=== PATIENT | male | born 1960 | race Caucasian/White ===

== ENCOUNTER 2017-03-05 22:25 | Emergency (ER) | payer OTHER ==
[~2017-03-05] VITALS: Ht 170.2 cm; Wt 70.0 kg
[~2017-03-05 22:25] MED LIST: BACI500O9 TOPICAL; CLIN1CAP6 PO; CLON1 PO; GABA300C5 PO; GABA800T PO; IBUP-232 PO; L. A1CAP PO; LISI-515 PO; MORP1TAB25 PO; NORC5TAB PO; OXYC-392 PO; PANT20 PO; QUET1TAB7 PO
[2017-03-05 22:28] VITALS: BP 159/96; PULSE 85; RESP 16; TEMP 98.6; O2SAT 98
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
--- NOTE | 2017-03-06 01:16 | RADRPT ---
EXAM DATE/TIME: 03/06/2017 00:39 [facility] COMPARISON: FOOT LEFT COMPLETE ([id number]), January 28, 2017, 19:47. INDICATIONS : Evaluate for osteomyelitis. MEDICAL HISTORY : Left heel ulcer. SURGICAL HISTORY : Left foot surgery. ENCOUNTER: Initial ACUITY: >1 year PAIN SCORE: 4/10 LOCATION: Left heel. FINDINGS: Two view examination of the left heel demonstrates postoperative changes with screws in the midfoot a s previously noted January 28. Again seen is a fracture of the screw traversing the talus and distal tib ia. Intramedullary terry is again seen traversing the fibula. There is advanced arthropathy in the midf oot and hindfoot with bony deformities from previous fractures that appear stable since January. There i s a small lucency in the soft tissues of the heel characteristic of a small ulceration with soft tiss ue swelling. CONCLUSION: 1. Chronic posttraumatic and postoperative changes of the left foot. Small ulceration noted in the so ft tissues of the left heel. Cornelio Horton MD on March 06, 2017 at 1:11 Board Certified Radiologist. This report was verified electronically.
[2017-03-06 01:33] LABS: AUTOMATED NEUTROPHIL # 2.5 TH/MM3 (1.8-7.7); BASOPHIL % 0.8 % (0.0-2.0); EOSINOPHIL # 0.1 TH/MM3 (0-0.4); EOSINOPHIL % 1.4 % (0.0-4.0); HEMATOCRIT 36.1 % (39.0-51.0); HEMO FLAGS DIFF FINAL; LYMPH % 44.7 % (9.0-44.0); LYMPHOCYTE # 2.6 TH/MM3 (1.0-4.8); MEAN CELL VOLUME 92.3 FL (80.0-100.0); MEAN CORPUSCULAR HEMOGLOBIN 30.3 PG (27.0-34.0); MEAN CORPUSCULAR HGB CONC 32.8 % (32.0-36.0); MONO % 10.3 % (0.0-8.0); NEUT % 42.8 % (16.0-70.0); PLATELET COUNT 262 TH/MM3 (150-450); RED BLOOD COUNT 3.91 MIL/MM3 (4.50-5.90); RED CELL DISTRIBUTION WIDTH 13.3 % (11.6-17.2); WHITE BLOOD COUNT 5.7 TH/MM3 (4.0-11.0)
[2017-03-06] MEDS ORDERED: BACT800T5 PO (02:00)
[2017-03-06] MEDS ORDERED: SULFAMETHOXAZOLE-TRIMETHOPRIM DS 800-160 MG TAB PO ONE (02:00)
[2017-03-06] MEDS ORDERED: CEPH-460 PO (02:00)
[2017-03-06] MEDS ORDERED: CEPHALEXIN MONOHYDRATE 500 MG CAP PO ONE (02:00)
[2017-03-06] MEDS ORDERED: IBUP-232 PO (02:00)
[2017-03-06] MEDS ORDERED: GABA300C5 PO (03:03)
[2017-03-06] MEDS ORDERED: DOXY100C PO (03:03)
== END 2017-03-06 02:23 | disposition home or self-care (01) ==
LOC: NEPC 22:25
DX: L97.521 Non-pressure chronic ulcer of other part of left foot limited to breakdown of skin (principal); I10 Essential (primary) hypertension
CPT/HCPCS: 73650; 85025; 99284

== ENCOUNTER 2017-03-06 02:25 | Emergency (ER) | payer OTHER ==
[~2017-03-06] VITALS: Ht 167.6 cm; Wt 70.0 kg
[~2017-03-06 02:25] MED LIST changes: +BACT800T5 PO; +CEPH-460 PO
[2017-03-06 02:28] VITALS: BP 148/101; PULSE 69; RESP 16; TEMP 98.1; O2SAT 98
[2017-03-06] MEDS ORDERED: DOXY100C PO (03:03)
[2017-03-06] MEDS ORDERED: GABA300C5 PO (03:03)
--- NOTE | 2017-03-06 03:18 | PD ---
HPI Chief Complaint: Medical Clearance Time Seen by Provider: 02:50 Travel History International Travel<30 days: No Contact w/Intl Traveler<30days: No Traveled to known affect area: No History of Present Illness HPI 56-year-old male with history of chronic left heel wound who presents for evaluation of left heel wound. He reports that over the past few weeks that wound has been more painful and he is concerned that it may be infected. This patient was just seen here in the past few hours where he had an x-ray which revealed no evidence of osteomyelitis. he had a reassuring CBC. He was discharged with prescriptions for Bactrim and Keflex. He was concerned because he was on Bactrim 1-2 months ago which didn't seem to help with his symptoms. He feels that he needs an antibiotic change because of this. 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 He is requesting something stronger than ibuprofen for pain. He has no other acute complaints at this time. PFSH Past Medical History Arthritis: Yes (TENDONITIS) Heart Rhythm Problems: No Cancer: No Cardiovascular Problems: Yes (HTN) High Cholesterol: Yes (Patient "thinks so") Chemotherapy: No Chest Pain: No Congestive Heart Failure: No Cerebrovascular Accident: No Diminished Hearing: No Endocrine: No Gastrointestinal Disorders: Yes Genitourinary: No Headaches: Yes Hypertension: Yes Immune Disorder: No Implanted Vascular Access Dvce: Yes Musculoskeletal: Yes (LT SHOULDER SURG AND RT WRIST/LT HAND WITH HARDWARE) Neurologic: Yes Psychiatric: No Reproductive: No Respiratory: No Immunizations Current: Yes Migraines: No Radiation Therapy: No Seizures: No Tetanus Vaccination: < 5 Years Past Surgical History Abdominal Surgery: No Body Medical Devices: hardware in left leg and right wrist Cardiac Surgery: No Ear Surgery: No Endocrine Surgery: No Eye Surgery: No Genitourinary Surgery: No Gynecologic Surgery: No Oral Surgery: No Pacemaker: No Thoracic Surgery: No Tonsillectomy: Yes Other Surgery: Yes Social History Alcohol Use: Yes (OCC) Tobacco Use: No Substance Use: No Allergies-Medications (Allergen,Severity, Reaction): Coded Allergies: *MDRO Multi-Drug Resistant Organism (Unverified Adverse Reaction, Unknown , 03/06/17) MRSA (wound) - 06/2014; MRSA (finger- 02/15/16); MRSA(foot-03/20/16 & 06/01/16) Reported Meds & Prescriptions Reported Meds & Active Scripts Active Gabapentin 300 Mg Cap 300 Mg PO BID 7 Days Doxycycline Hyclate 100 Mg Cap 100 Mg PO BID Ibuprofen 600 Mg Tab 600 Mg PO Q6H PRN Bactrim DS (Sulfamethoxazole-Trimethoprim) 800-160 Mg Tab 1 Tab PO BID Keflex (Cephalexin) 500 Mg Cap 500 Mg PO Q6H 7 Days Gabapentin 300 Mg Cap 300 Mg PO BID Ibuprofen 600 Mg Tab 600 Mg PO TID Acidophilus Capsule (L. Acidophilus/Pectin, [place]) 1 Each Capsule 100 Mg PO TID Quetiapine (Quetiapine Fumarate) 25 Mg Tab 50 Mg PO DIRECTED 30 Days 50 mg po daily and 100 mg po at bedtime. Klonopin (Clonazepam) 1 Mg Tab 1 Mg PO Q12HR 30 Days Protonix (Pantoprazole Sodium) 20 Mg Tab 20 Mg PO DAILY Oxycodone (Oxycodone HCl) 5 Mg Tab 15 Mg PO Q4H PRN Lisinopril 20 Mg Tab 20 Mg PO DAILY Reported Morphine ER (Morphine Sulfate) 30 Mg Tab 30 Mg PO BID Gabapentin 800 Mg Tab 800 Mg PO QID Review of Systems Except as stated in HPI: all other systems reviewed are Neg Physical Exam Narrative GENERAL: Well-nourished male in no acute distress SKIN: Warm and dry. 1.0 x 0.5 cm open healing wound with mild serous drainage without any erythema, purulence, induration or fluctuance. HEAD: Atraumatic. Normocephalic. EYES: Pupils equal and round. No scleral icterus. No injection or drainage. ENT: No nasal bleeding or discharge. Mucous membranes pink and moist. NECK: Trachea midline. No JVD. CARDIOVASCULAR: Regular rate and rhythm. No murmur appreciated. RESPIRATORY: No accessory muscle use. Clear to auscultation. Breath sounds equal bilaterally. GASTROINTESTINAL: Abdomen soft, non-tender, nondistended. Hepatic and splenic margins not palpable. MUSCULOSKELETAL: Skin as noted above. 2+ dorsalis pedis pulse. The foot is warm and well perfused. NEUROLOGICAL: Awake and alert. No obvious cranial nerve deficits. Motor grossly within normal limits. Normal speech. Data Data Last Documented VS Vital Signs Date Time Temp Pulse Resp B/P (MAP) Pulse Ox O2 Delivery O2 Flow Rate FiO2 03/06/17 03:17 03/06/17 02:28 98.1 69 16 98 Orders Orders Wound Care (03/06/17 03:03) Wound Culture And Gram Stain (03/06/17 03:04) [facility] Medical Decision Making Medical Screen Exam Complete: Yes Emergency Medical Condition: Yes Medical Record Reviewed: Yes Differential Diagnosis Chronic heel wound, cellulitis, osteomyelitis Narrative Course I had a long discussion with the patient in regards to his past medical history and the proposed treatment plan. This patient has a chronic wound on the left heel which actually appears quite well with no erythema, mild serous drainage. He is concerned because recent Bactrim use did not seem to help with his symptoms. I explained to the patient that this chronic wound will not heal with a course of antibiotics. As an alternative I have prescribed him doxycycline as all of his previous wound cultures have grown out MRSA susceptible to doxycycline. A wound culture of the serous fluid was performed. He reports that gabapentin is helped with his pain in the past so he will be given a short supply. He is stable for discharge. It should be noted that The patient refused a wound dressing. Diagnosis Primary Impression: Foot ulcer Qualified Codes: L97.529 - Non-pressure chronic ulcer of other part of left foot with unspecified severity Referrals: Jennifer Tobias DPM Med/Other Pt SpecificInfo: Prescription(s) given, Wound Care Scripts Gabapentin (Gabapentin) 300 Mg Cap 300 MG PO BID for 7 Days, CAP 0 Refills Prov: Jennifer Medina DO 03/06/17 Doxycycline Hyclate (Doxycycline Hyclate) 100 Mg Cap 100 MG PO BID for Infection, #20 CAP 0 Refills Prov: Jennifer Medina DO 03/06/17 Disposition: 01 DISCHARGE HOME Condition: Stable Teofilo Hutson Mar 06, 2017 03:18
== END 2017-03-06 03:24 | disposition home or self-care (01) ==
LOC: NEPD 02:25
DX: L97.529 Non-pressure chronic ulcer of other part of left foot with unspecified severity (principal); B95.62 Methicillin resistant Staphylococcus aureus infection as the cause of diseases classified elsewhere; B96.5 Pseudomonas (aeruginosa) (mallei) (pseudomallei) as the cause of diseases classified elsewhere
CPT/HCPCS: 86403; 87070; 87077; 87186; 99284

== ENCOUNTER 2017-05-20 14:28 | Emergency (ER) | payer OTHER ==
[~2017-05-20] VITALS: Ht 172.7 cm; Wt 65.5 kg
[~2017-05-20 14:28] MED LIST changes: -BACI500O9 TOPICAL; -CLIN1CAP6 PO; +DOXY100C PO; -NORC5TAB PO
[2017-05-20] MEDS ORDERED: GADODIAMIDE PF 287 MG/ML 5 ML VIAL (for RAD MRI) IVCONTRAST ONE (14:29)
[2017-05-20 15:14] VITALS: BP 147/86; PULSE 96; RESP 16; TEMP 98.4; O2SAT 98
[2017-05-20] MEDS ORDERED: MORP1TAB24 PO (15:53)
[2017-05-20] MEDS ORDERED: HYDR-3533 PO ×2 (15:53→20:50)
[2017-05-20] MEDS ORDERED: IBUPROFEN 800 MG TAB PO ONE (16:15)
--- NOTE | 2017-05-20 16:16 | PD ---
HPI Chief Complaint: Skin Problem Time Seen by Provider: 16:07 Travel History International Travel<30 days: No Contact w/Intl Traveler<30days: No Traveled to known affect area: No History of Present Illness HPI 57-year-old male presents emergency Department with complaint of "a hole in the bottom of his left foot" and left hip pain 6 months. 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 He reports increased pain to the area in the last couple days. Denies fever, vomiting. Denies paresthesias, loss of sensation, decreased range of motion, decreased strength to the affected extremity. Last took antibiotics for the ulcer 3 months ago. He is concerned is becoming infected again. Has not taken any medication or turning treatments to alleviate his symptoms. Does not have an established primary care provider. Not followed up for continued care. Has no other medical complaints. No other modifying factors or associated signs and symptoms. PFSH Past Medical History Arthritis: Yes (TENDONITIS) Heart Rhythm Problems: No Cancer: No Cardiovascular Problems: Yes (HTN) High Cholesterol: Yes (Patient "thinks so") Chemotherapy: No Chest Pain: No Congestive Heart Failure: No Cerebrovascular Accident: No Diminished Hearing: No Endocrine: No Gastrointestinal Disorders: Yes Genitourinary: No Headaches: Yes Hypertension: Yes Immune Disorder: No Implanted Vascular Access Dvce: Yes Musculoskeletal: Yes (LT SHOULDER SURG AND RT WRIST/LT HAND WITH HARDWARE) Neurologic: Yes Psychiatric: No Reproductive: No Respiratory: No Immunizations Current: Yes Migraines: No Radiation Therapy: No Seizures: No Past Surgical History Abdominal Surgery: No Body Medical Devices: hardware in left leg and right wrist Cardiac Surgery: No Ear Surgery: No Endocrine Surgery: No Eye Surgery: No Genitourinary Surgery: No Gynecologic Surgery: No Oral Surgery: No Pacemaker: No Thoracic Surgery: No Tonsillectomy: Yes Other Surgery: Yes Social History Alcohol Use: Yes (OCC) Tobacco Use: No Substance Use: No Allergies-Medications (Allergen,Severity, Reaction): Coded Allergies: *MDRO Multi-Drug Resistant Organism (Unverified Adverse Reaction, Unknown , 05/20/17) MRSA (wound) - 06/2014; MRSA (finger- 02/15/16); MRSA(foot-03/20/16 & 06/01/16) Reported Meds & Prescriptions Reported Meds & Active Scripts Active Lortab (Hydrocodone-Acetaminophen) 5-325 Mg Tab 1-2 Tab PO Q6H PRN Ciprofloxacin (Ciprofloxacin HCl) 500 Mg Tab 500 Mg PO BID 10 Days Clindamycin (Clindamycin HCl) 150 Mg Cap 450 Mg PO Q6H 10 Days Reported Morphine ER (Morphine Sulfate) 15 Mg Tab Unknown Dose PO BID Lortab (Hydrocodone-Acetaminophen) 5-325 Mg Tab Unknown Dose PO Q4H PRN Review of Systems Except as stated in HPI: all other systems reviewed are Neg Physical Exam Narrative GENERAL: Well-nourished, well-developed male patient, in no acute distress SKIN: Warm and dry. Bottom of left foot with approximately 1 cm in diameter ulceration; without drainage or surrounding erythema. Appears to have no signs of infection. Left foot is without erythema, edema. Left lower extremity supple and non-tense with 2+ pedal pulse and sensory intact without erythema or edema. HEAD: Atraumatic. Normocephalic. EYES: Pupils equal and round. No scleral icterus. No injection or drainage. ENT: Mucosa pink and moist. Airway patent. NECK: Trachea midline. CARDIOVASCULAR: Regular rate. RESPIRATORY: No accessory muscle use. GASTROINTESTINAL: Flat. MUSCULOSKELETAL: No obvious deformities. No clubbing. No cyanosis. No edema. NEUROLOGICAL: Awake and alert. Oriented 3. No obvious cranial nerve deficits. Motor grossly within normal limits. Normal speech. PSYCHIATRIC: Appropriate mood and affect; insight and judgment normal. Data Data Last Documented VS Vital Signs Date Time Temp Pulse Resp B/P (MAP) Pulse Ox O2 Delivery O2 Flow Rate FiO2 05/20/17 20:22 20 05/20/17 15:14 98.4 96 147/86 (106) 98 Orders Orders Ibuprofen (Motrin) (05/20/17 16:15) Foot, Complete ([id number]) (05/20/17 16:16) Wound Culture And Gram Stain (05/20/17 16:17) Mri Foot W&W/O Contrast (05/20/17 ) Basic Metabolic Panel (Bmp) (05/20/17 17:13) Complete Blood Count With Diff (05/20/17 17:13) Iv Access Insert/Monitor (05/20/17 17:13) C-Reactive Protein (Crp) (05/20/17 17:13) [place] Sedimentation Rate (05/20/17 17:13) Oxycodone-Acetamin 5-325 Mg (Percocet (05/20/17 18:30) Gadodiamide Pf Inj (Omniscan Pf Inj) (05/20/17 14:29) Ed Discharge Order (05/20/17 20:51) Labs Laboratory Tests Test 05/20/17 17:30 White Blood Count 7.1 TH/MM3 Red Blood Count 4.64 MIL/MM3 Hemoglobin 14.0 GM/DL Hematocrit 41.8 % Mean Corpuscular Volume 90.0 FL Mean Corpuscular Hemoglobin 30.2 PG Mean Corpuscular Hemoglobin Concent 33.6 % Red Cell Distribution Width 13.6 % Platelet Count 294 TH/MM3 Mean Platelet Volume 7.8 FL Neutrophils (%) (Auto) 62.6 % Lymphocytes (%) (Auto) 29.2 % Monocytes (%) (Auto) 6.6 % Eosinophils (%) (Auto) 1.0 % Basophils (%) (Auto) 0.6 % Neutrophils # (Auto) 4.4 TH/MM3 Lymphocytes # (Auto) 2.1 TH/MM3 Monocytes # (Auto) 0.5 TH/MM3 Eosinophils # (Auto) 0.1 TH/MM3 Basophils # (Auto) 0.0 TH/MM3 CBC Comment DIFF FINAL Differential Comment Erythrocyte Sedimentation Rate 6 mm/hr Blood Urea Nitrogen 22 MG/DL Creatinine 0.89 MG/DL Random Glucose 89 MG/DL Calcium Level 9.0 MG/DL Sodium Level 138 MEQ/L Potassium Level 4.2 MEQ/L Chloride Level 103 MEQ/L Carbon Dioxide Level 29.2 MEQ/L Anion Gap 6 MEQ/L Estimat Glomerular Filtration Rate 88 ML/MIN C-Reactive Protein LESS THAN 0.29 MG/DL [facility] Medical Decision Making Medical Screen Exam Complete: Yes Emergency Medical Condition: Yes Medical Record Reviewed: Yes Differential Diagnosis Wound infection, foot ulcer, osteomyelitis Narrative Course 57-year-old male with increasing left foot pain. He has a small open chronic ulcer to the bottom of his left foot he has been treating for for the past 6 months. He last took antibiotics for an infected ulcer 3 months ago. I reviewed the record and past culture of the ulcer shows susceptibility to Bactrim and Keflex. Patient is afebrile and nontoxic-appearing. He denies fever, vomiting. The ulceration area does not appear to be infected. I will x- ray the foot to rule out osteomyelitis. 1708: Left foot x-ray concludes: Stable postsurgical changes with osseous screws securing the tibiotalar and tarsal-metatarsal joints as above. One of the tibiotalar screws is fractured but stable from prior. 2. Severe associated degenerative changes in the mid and hindfoot. Old fracture deformity of the calcaneus. 3. Suggestion of a small soft tissue ulceration in the plantar and posterior aspect of the heel. Subjacent calcaneus appears to be intact, however. 4. There is a focal area of possible cortical irregularity/erosion in the far anterior plantar aspect of the calcaneus. Small foci of osteomyelitis cannot be excluded. 171: I spoke with Dr. Welch, my attending physician, and he recommended MRI with and without contrast of the foot to rule out osteomyelitis, CBC, BMP, sedimentation rate, CRP. Orders entered. 1840: CBC unremarkable. BMP unremarkable. ESR 6. 1956: CRP less than 0.29. 2047: MRI concludes: Foot MRI 05/20/17 0000 Signed Impressions: Service Date/Time: Saturday, May 20, 2017 19:14 - CONCLUSION: 1. Examination quality is significantly degraded secondary to hardware which results in poor fat suppression. However, I do not appreciate any findings to suggest osteomyelitis. There is mild increased T2 signal superficial to the calcaneus but no significant fluid collection is identified. 2. Joint effusion at the tibiotalar joint with mild edema in the adjacent bones, presumably reactive. 3. If there is persistent clinical concern for osteomyelitis consider white blood cell scan. Galo Sparrow MD The patient was provided copies of the x-ray and MRI reports. I Spoke with Dr. Welch and he agrees the patient is stable for discharge. Clindamycin, Cipro, Lortab prescribed for home. . patient to follow up with podiatry. Instructed patient to follow up with primary care provider. Patient verbalizes understanding and agreement with treatment plan. Patient is medically cleared and stable for discharge. Discussed reasons to return to the emergency department. Patient agrees with treatment plan. The patients vital signs are stable and the patient is stable for outpatient follow-up and treatment. Patient discharged home, stable and in no acute distress. Diagnosis Primary Impression: Ulcer of left foot Qualified Codes: L97.529 - Non-pressure chronic ulcer of other part of left foot with unspecified severity Referrals: [facility] [employer] Primary Care Physician Patient Instructions: Chronic Wound Care (DC), General Instructions Additional Instructions: Antibiotic as prescribed Keep area clean and dry Chronic wound care as directed by discharge instructions Follow-up with primary care provider Follow-up with wound care Return to the emergency department immediately with worsening of symptoms Med/Other Pt SpecificInfo: Prescription(s) given Scripts Hydrocodone-Acetaminophen (Lortab) 5-325 Mg Tab 1-2 TAB PO Q6H Y for PAIN, #12 TAB 0 Refills Prov: Kayla Riggs 05/20/17 Ciprofloxacin (Ciprofloxacin) 500 Mg Tab 500 MG PO BID for Infection for 10 Days, #20 TAB 0 Refills Prov: Kayla Riggs 05/20/17 Clindamycin (Clindamycin) 150 Mg Cap 450 MG PO Q6H for Infection for 10 Days, #120 CAP 0 Refills Prov: Kayla Riggs 05/20/17 Disposition: 01 DISCHARGE HOME Condition: Stable Kayla Riggs May 20, 2017 16:16
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
[2017-05-20 18:09] LABS: AUTOMATED NEUTROPHIL # 4.4 TH/MM3 (1.8-7.7); BASOPHIL % 0.6 % (0.0-2.0); EOSINOPHIL # 0.1 TH/MM3 (0-0.4); HEMATOCRIT 41.8 % (39.0-51.0); HEMO FLAGS DIFF FINAL; LYMPH % 29.2 % (9.0-44.0); LYMPHOCYTE # 2.1 TH/MM3 (1.0-4.8); MEAN CORPUSCULAR HEMOGLOBIN 30.2 PG (27.0-34.0); MEAN CORPUSCULAR HGB CONC 33.6 % (32.0-36.0); MONO % 6.6 % (0.0-8.0); NEUT % 62.6 % (16.0-70.0); PLATELET COUNT 294 TH/MM3 (150-450); RED BLOOD COUNT 4.64 MIL/MM3 (4.50-5.90); RED CELL DISTRIBUTION WIDTH 13.6 % (11.6-17.2); WHITE BLOOD COUNT 7.1 TH/MM3 (4.0-11.0)
[2017-05-20 18:29] LABS: CHLORIDE 103 MEQ/L (98-107); POTASSIUM 4.2 MEQ/L (3.5-5.1); SODIUM (NA) 138 MEQ/L (136-145)
[2017-05-20] MEDS ORDERED: oxyCODONE/ACETAMINOPHEN 5 MG/325 MG TAB PO ONE (18:30)
[2017-05-20 18:33] LABS: ANION GAP 6 MEQ/L (5-15); BICARBONATE 29.2 MEQ/L (21.0-32.0); BLOOD UREA NITROGEN 22 MG/DL (7-18)
[2017-05-20 18:36] LABS: GLOMERULAR FILTRATION RATE 88 ML/MIN (>89)
[2017-05-20 20:22] VITALS: RESP 20
--- NOTE | 2017-05-20 20:41 | RADRPT ---
EXAM DATE/TIME: 05/20/2017 19:14 [facility] COMPARISON: FOOT LEFT COMPLETE ([id number]), May 20, 2017, 16:17. MRI FOOT LEFT W & W/O CONTRAST, May 30, 2016, 21:28. INDICATIONS : Osteomyelitis. Left heel pain. CONTRAST: 13 cc Omniscan (gadodiamide) IV MEDICAL HISTORY : Hypertension. SURGICAL HISTORY : Left foot and leg sx, Left and right shoulder sx. ENCOUNTER: Initial ACUITY: 1 month PAIN SCORE: 9/10 LOCATION: Left heel TECHNIQUE: Multiplanar, multisequence MRI examination was performed without contrast and after the intravenous a dministration of gadolinium. FINDINGS: There is metallic hardware in the distal tibia, fibula, and midfoot which results in susceptibility a rtifact and poor fat suppression. The calcaneus demonstrates an abnormal shape to but no definite sig nal abnormality is identified within the calcaneus. There is edema within the talus and distal tibia, possibly related to the degenerative change. There is a tibiotalar joint effusion. There is mild inc reased T2 signal within the soft tissues superficial to the calcaneus. However, no significant fluid collection is identified. The visualized tendons demonstrate no acute finding. CONCLUSION: 1. Examination quality is significantly degraded secondary to hardware which results in poor fat supp ression. However, I do not appreciate any findings to suggest osteomyelitis. There is mild increased T2 signal superficial to the calcaneus but no significant fluid collection is identified. 2. Joint effusion at the tibiotalar joint with mild edema in the adjacent bones, presumably reactive. 3. If there is persistent clinical concern for osteomyelitis consider white blood cell scan. Galo Sparrow MD on May 20, 2017 at 20:35 Board Certified Radiologist. This report was verified electronically.
[2017-05-20] MEDS ORDERED: CLIN150C14 PO (20:50)
[2017-05-20] MEDS ORDERED: CIPR500T2 PO (20:50)
== END 2017-05-20 21:04 | disposition home or self-care (01) ==
LOC: PHEFT 14:28
DX: L97.529 Non-pressure chronic ulcer of other part of left foot with unspecified severity (principal); B96.5 Pseudomonas (aeruginosa) (mallei) (pseudomallei) as the cause of diseases classified elsewhere; I10 Essential (primary) hypertension; M86.9 Osteomyelitis, unspecified; Z79.899 Other long term (current) drug therapy
CPT/HCPCS: 73630; 73720; 80048; 85025; 85652; 86140; 87070; 87077; 87186; 99285; A9579

== ENCOUNTER → 2017-08-13 | Outpatient (CLI) | payer OTHER ==
[~2017-08-13] MED LIST changes: -BACT800T5 PO; -CEPH-460 PO; +CIPR500T2 PO; +CLIN150C14 PO; -CLON1 PO; -DOXY100C PO; -GABA300C5 PO; -GABA800T PO; +HYDR-3533 PO; -IBUP-232 PO; -L. A1CAP PO; -LISI-515 PO; +MORP1TAB24 PO; -MORP1TAB25 PO; -OXYC-392 PO; -PANT20 PO; -QUET1TAB7 PO
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
== END ==
LOC: HRAD 13:34
PROVIDERS: ATTEND Psychiatry & Neurology Neurology
DX: M51.26 Other intervertebral disc displacement, lumbar region (principal); I10 Essential (primary) hypertension
CPT/HCPCS: 72148

== ENCOUNTER 2017-08-24 19:11 | Emergency (ER) | payer OTHER ==
[~2017-08-24] VITALS: Ht 167.6 cm; Wt 68.0 kg
[2017-08-24 19:13] VITALS: BP 155/89; PULSE 78; RESP 16; TEMP 98.3; O2SAT 96
[2017-08-24] MEDS ORDERED: HYDR-3583 PO (19:33)
[2017-08-24] MEDS ORDERED: GABA800T PO (19:33)
[2017-08-24 19:54] LABS: AUTOMATED NEUTROPHIL # 1.5 TH/MM3 (1.8-7.7); BASOPHIL % 0.9 % (0.0-2.0); EOSINOPHIL # 0.1 TH/MM3 (0-0.4); EOSINOPHIL % 2.1 % (0.0-4.0); HEMATOCRIT 31.8 % (39.0-51.0); HEMOGLOBIN 10.5 GM/DL (13.0-17.0); LYMPH % 48.4 % (9.0-44.0); LYMPHOCYTE # 1.9 TH/MM3 (1.0-4.8); MEAN CELL VOLUME 89.7 FL (80.0-100.0); MEAN CORPUSCULAR HEMOGLOBIN 29.7 PG (27.0-34.0); MEAN CORPUSCULAR HGB CONC 33.1 % (32.0-36.0); MEAN PLATELET VOLUME 6.9 FL (7.0-11.0); MONO % 11.2 % (0.0-8.0); MONOCYTE # 0.4 TH/MM3 (0-0.9); NEUT % 37.4 % (16.0-70.0); PLATELET COUNT 252 TH/MM3 (150-450); RED BLOOD COUNT 3.54 MIL/MM3 (4.50-5.90)
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
[2017-08-24 20:26] LABS: ALBUMIN 3.6 GM/DL (3.4-5.0); ALT (GPT) 24 U/L (12-78); AST (GOT) 38 U/L (15-37); BICARBONATE 27.9 MEQ/L (21.0-32.0); BLOOD UREA NITROGEN 13 MG/DL (7-18); C-REACTIVE PROTEIN LESS THAN 0.29 MG/DL (0.00-0.30); CALCIUM 8.4 MG/DL (8.5-10.1); CHLORIDE 111 MEQ/L (98-107); CREATININE 1.05 MG/DL (0.60-1.30); GLOMERULAR FILTRATION RATE 73 ML/MIN (>89); GLUCOSE,RANDOM 79 MG/DL (74-106); SODIUM (NA) 144 MEQ/L (136-145)
[2017-08-24 20:29] LABS: ALKALINE PHOSPHATASE 51 U/L (45-117); TOTAL BILIRUBIN ADULT 0.2 MG/DL (0.2-1.0); TOTAL PROTEIN 8.1 GM/DL (6.4-8.2)
== END 2017-08-24 21:18 | disposition home or self-care (01) ==
LOC: NEPD 19:11
DX: M79.672 Pain in left foot (principal); I10 Essential (primary) hypertension; E78.00 Pure hypercholesterolemia, unspecified
CPT/HCPCS: 73630; 80053; 85025; 85652; 86140; 99284

== ENCOUNTER 2017-09-08 03:13 | Emergency (ER) | payer OTHER ==
[~2017-09-08] VITALS: Ht 170.2 cm; Wt 65.0 kg
[~2017-09-08 03:13] MED LIST changes: -CIPR500T2 PO; -CLIN150C14 PO; +GABA800T PO; -HYDR-3533 PO; +HYDR-3583 PO
[2017-09-08 03:21] VITALS: BP 132/95; PULSE 78; RESP 18; TEMP 97.5; O2SAT 97
[2017-09-08 04:00] VITALS: BP 151/89; PULSE 75; RESP 18; TEMP 97.5; O2SAT 93
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
[2017-09-08] MEDS ORDERED: DOXY100C PO (04:45)
[2017-09-08] MEDS ORDERED: SULFAMETHOXAZOLE-TRIMETHOPRIM DS 800-160 MG TAB PO ONE (04:45)
[2017-09-08] MEDS ORDERED: BACT800T5 PO (04:45)
[2017-09-08] MEDS ORDERED: DOXYCYCLINE HYCLATE 100 MG CAP PO ONE (04:45)
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
[2017-09-08] MEDS ORDERED: IBUPROFEN 600 MG TAB PO ONE (05:00)
[2017-09-08] MEDS ORDERED: IBUP-232 PO (05:31)
[2017-09-08 05:44] VITALS: BP 152/80
== END 2017-09-08 05:46 | disposition home or self-care (01) ==
LOC: PHED 03:13
DX: L97.529 Non-pressure chronic ulcer of other part of left foot with unspecified severity (principal); I10 Essential (primary) hypertension; E78.00 Pure hypercholesterolemia, unspecified; M19.90 Unspecified osteoarthritis, unspecified site; E78.5 Hyperlipidemia, unspecified
CPT/HCPCS: 73630; 86403; 87070; 87205; 99283

== ENCOUNTER 2017-12-02 22:54 | Emergency (ER) | payer OTHER ==
[~2017-12-02 22:54] MED LIST changes: +BACT800T5 PO; +DOXY100C PO; +IBUP-232 PO
[2017-12-02 23:00] VITALS: BP 179/97; PULSE 73; RESP 15; TEMP 98.8; O2SAT 96
[2017-12-02] MEDS ORDERED: CEPH-460 PO (23:25)
[2017-12-02] MEDS ORDERED: BACT800T5 PO (23:25)
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
[2017-12-02] MEDS ORDERED: CEPHALEXIN MONOHYDRATE 500 MG CAP PO ONE (23:30)
[2017-12-02] MEDS ORDERED: SULFAMETHOXAZOLE-TRIMETHOPRIM DS 800-160 MG TAB PO ONE (23:30)
[2017-12-02] MEDS ORDERED: KETOROLAC TROMETHAMINE 60 MG/2 ML (IM) VIAL IM ONE (23:30)
== END 2017-12-02 23:40 | disposition home or self-care (01) ==
LOC: NEPD 22:54
DX: L03.111 Cellulitis of right axilla (principal); L03.112 Cellulitis of left axilla
CPT/HCPCS: 96372; 99283; J1885